=== PATIENT | female | born 1990 | race Asian ===

== ENCOUNTER 2017-04-03 10:51 | Outpatient (CLI) | payer BC ==
[2017-04-03 13:03] LABS: Hematocrit 42.8 % (36.0-47.0); Mean Platelet Volume 7.5 fL (7.4-10.4); Red Blood Cell (RBC) Count 4.48 mill/uL (4.20-5.40); White Blood Cell (WBC) Count 9.8 thou/uL (4.8-10.8)
== END 2017-04-03 10:52 | disposition home or self-care (01) ==
LOC: LABBT 10:51
PROVIDERS: ATTEND Obstetrics & Gynecology
DX: Z01.812 Encounter for preprocedural laboratory examination (principal); N83.201 Unspecified ovarian cyst, right side
CPT/HCPCS: 84703; 85027; 86850; 86900; 86901

== ENCOUNTER 2017-04-09 05:53 | Day surgery (SDC) | payer BC ==
[2017-04-03 12:00] VITALS: BMI 20.6
--- NOTE | 2017-04-03 13:00 | HP ---
HISTORY OF PRESENT ILLNESS: Ms. Reece is a 26-year-old [place] female G0 who was initially referred f rom the [facility] [place] [facility] due to history of persistently throwing simple right ovarian cyst. It had been growing slowly on ultrasound evaluation until 2014. Recent size was 7 c m and a normal appearing left ovary and uterus were seen. She denies any persistent pain or issues with this, but has been followed due to inconsistent growth of the cyst. PAST MEDICAL HISTORY: Otherwise, negative. PAST SURGICAL HISTORY: Negative. 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 She is . She is a nonsmoker, n ondrinker. ALLERGIES: She has no known drug allergies. FAMILY HISTORY: Negative for any breast or ovarian cancer. No other health problems other than chr onic hypertension in her father. CURRENT MEDICATIONS: None. PHYSICAL EXAMINATION: VITAL SIGNS: Blood pressure is 90/60, pulse 81, respirations 18, height 62 inches, weight 111 pound s with a BMI 20.3. CHEST: Clear to auscultation. HEART: Regular rate and rhythm. S1, S2 heart sounds, no murmurs, rubs or gallops. ABDOMEN: Soft, nontender, nondistended. PELVIC: Vulva and vagina had no lesions. Cervix had no lesions. Pap smear was negative in 2016. Uterus was small and nontender. Adnexa on the right showed a fullness in the right side, right was normal. No adnexal masses on the masses on the left side. Transvaginal ultrasound performed on 03/20/2017 showed the right ovarian cyst 8.4 cm and simple in c haracter. ASSESSMENT: A 26-year-old [place] female G0 with progressively enlarging right simple ovarian cyst, now at 8.4 cm, possibility is a serous cystadenoma. PLAN: Proceed with a robotic diagnostic laparoscopy with right salpingo-oophorectomy versus right cystectomy if there is any evidence of any residual normal ovarian tissue. Risks and benefits of pr ocedure discussed in detail. She is set for surgery on 04/09/2017.
[2017-04-09] MEDS ORDERED: CEFAZOLIN/Water 2 GM/20 ML SYRINGE ONE (06:28)
[2017-04-09] MEDS ORDERED: Bupivacaine PF 0.5% 30 ML VIAL ONE (06:29)
[2017-04-09] MEDS ORDERED: Fentanyl 100 MCG/2 ML VIAL ONE ×2 (06:30→09:26)
[2017-04-09] MEDS ORDERED: Scopolamine 1.5 mg/72 hour Patch ONE (07:04)
[2017-04-09] MEDS ORDERED: Lidocaine 2% PF 10 ML AMP (For Epidural Use) ONE (07:38)
[2017-04-09] MEDS ORDERED: Metoclopramide HCl 10 MG/2 ML VIAL ONE (07:38)
[2017-04-09] MEDS ORDERED: Glycopyrrolate 0.2 MG/ML 5 ML SYRINGE ONE (07:38)
[2017-04-09] MEDS ORDERED: Propofol 200 MG/20 ML VIAL ONE (07:38)
[2017-04-09] MEDS ORDERED: Ketorolac Tromethamine 30 MG/ML VIAL ONE (07:38)
[2017-04-09] MEDS ORDERED: Ondansetron HCl/PF 4 MG/2 ML Vial ONE (07:38)
[2017-04-09] MEDS ORDERED: Dexamethasone 20 MG/5 ML VIAL ONE (07:38)
[2017-04-09] MEDS ORDERED: Meperidine HCl/PF 25 MG/ML VIAL ONE (09:15)
--- NOTE | 2017-04-09 09:57 | OP ---
DATE OF PROCEDURE: 04/09/2017 PREOPERATIVE DIAGNOSIS: A 26-year-old female G0 with progressively enlarging right simple ovarian c yst approximately 9 cm. POSTOPERATIVE DIAGNOSIS: A 26-year-old female G0 with progressively enlarging right simple ovarian cyst approximately 9 cm. PROCEDURES PERFORMED: Robotic-assisted laparoscopic right salpingo-oophorectomy and diagnostic scop e. SURGEON: Sheryl Shah M.D. CALCULATION REVIEWER SURGEON: Marito Chen M.D. ANESTHESIA: General endotracheal. ESTIMATED BLOOD LOSS: Less than 10 mL. COMPLICATIONS: None. COUNTS: Correct x2. FINDINGS: 1. Normal appearing left fallopian tube, ovary, uterus and appendix. 2. Approximately 10 cm simple cystic ovarian neoplasm essentially replacing the entire ovarian tiss ue with no evidence of any papillations or excrescences seen. No evidence of any residual normal ap pearing right ovarian tissue remnants visible. DISPOSITION: To the recovery room stable. DESCRIPTION OF OPERATIVE PROCEDURE: The patient previously received informed consent. She is taken back to the operating room where she received a general endotracheal anesthetic agent without compl ications. She was then placed in the dorsal lithotomy position with the use of Lul stirrups and p repped and draped in usual sterile fashion. Weiner catheter was placed. At this time, a side-arm sp eculum was placed in the vagina. Anterior lip of cervix grasped with single tooth tenaculum and a H Hum[employer]te uterine manipulator was placed. Tenaculum and speculum were then removed. Attention was then turned to the abdomen where perspective trocar sites were infiltrated with 0.5% Marcaine. A 10 mm s upraumbilical incision was made. Veress needle was entered into the peritoneal cavity. Patient's p ressure was noted to be less than 5 mm and abdomen was insufflated to patient pressure of 15, approx imately 4-1/2 liters carbon dioxide gas. A size 12 trocar was then placed in the umbilical incision site and then the robotic laparoscope was introduced through the trocar sleeve confirming proper pl acement. Additional bilateral lower quadrant 8 mm robotic trocars were placed along with an 11 mm m idline suprapubic trocar. The patient was placed in deep Trendelenburg position and the robot was d ocked in usual fashion. I proceeded to carry out the procedure from the operative console where my assistants remained at the bedside. Photodocumentation at this time of the pelvis with the uterus a nd the ovarian cyst was made. Under careful microscopic evaluation of the right ovarian adnexal cys t, there appeared to be no obvious remnant of normal ovarian tissue and therefore, decision to proce ed with RSO was made. My conservation assistant placed an atraumatic trocar through the midline suprapubic port and the end of the right fallopian tube was grasped. He pulled this towards the midline. I then is olated the right infundibulopelvic ligament and was cauterized with bipolar fenestrated cautery and then incised with monopolar scissors. This continued along the mesosalpinx mesenteric border up to the cornu of the uterus. Coagulating and transecting this area until the right uterine ovarian liga ment was reached, which were cauterized and then transected. The monopolar scissors then was replac ed with a needle mobile lounge driver for better grasping. A size 11 mm Endobag was placed through the suprapubic port and then the ovarian cyst and adnexal structure was placed inside the Endobag. The cyst was d eflated some with monopolar scissors and to decrease some of the fluid and was somewhat filled withi n the cavity which was then suctioned. This allowed for that the large cyst definitive Endobag, whi ch was then sealed. The robot was then undocked. The Endobag was then brought up through the supra pubic incision site and the suctioned fluid was removed and the fallopian tube was then removed piec emeal with Jeet clamp and then the remaining cyst was easily delivered through the fascial defect. Hemostasis all confirmed with laparoscope. The pelvis again was irrigated and suctioned. The tro car sleeves were then removed. A deep stitch of 0 Vicryl was placed in the suprapubic fascial defec t and in the umbilical fascial defect. The rest of the trocar sites were closed with 4-0 Monocryl a nd Dermabond. Hemostasis was secured. The Hulka uterine manipulator was removed and hemostasis of the cervical site was confirmed. Weiner catheter was removed in the OR. She will be transferred to recovery room and plan for discharge home later today with followup in 2 weeks.
[2017-04-09] MEDS ORDERED: HYDROcodone/Acetaminophen 5/325 mg Tablet ONE (10:44)
== END 2017-04-09 11:55 | disposition home or self-care (01) ==
LOC: SDC 05:53
PROVIDERS: ATTEND Obstetrics & Gynecology
PROC: 0UB04ZZ Excision of Right Ovary, Percutaneous Endoscopic Approach (ICD-10-PCS; principal; 2017-04-09)
PROC: 0UB54ZZ Excision of Right Fallopian Tube, Percutaneous Endoscopic Approach (ICD-10-PCS; principal; 2017-04-09)
DX: D27.0 Benign neoplasm of right ovary (principal); J45.909 Unspecified asthma, uncomplicated; F41.9 Anxiety disorder, unspecified; Z79.899 Other long term (current) drug therapy; Z90.89 Acquired absence of other organs; Z98.890 Other specified postprocedural states; Z82.49 Family history of ischemic heart disease and other diseases of the circulatory system
CPT/HCPCS: 88307; 96374; S2900; J0131; J1100; J1170; J1885; J2001; J2175; J2405; J2704; J2765; J3010; S0020